=== PATIENT | female | born 1960 | race Caucasian/White ===

== ENCOUNTER 2019-03-23 14:32 | Inpatient (IN) | payer MEDICAID ==
[~2019-03-23] VITALS: Ht 165.1 cm; Wt 108.9 kg
[2019-03-23] MEDS ORDERED: ACETAMINOPHEN 325MG TABLET PO STA (14:56)
[2019-03-23] MEDS ORDERED: SODIUM CHLORIDE 0.9% 1000ML BAG (SEPSIS BOLUS) IV ONE (15:00)
[2019-03-23 15:30] LABS: BASOPHILS % 0.9 % (0.0-2.0); EOSINOPHILS % 0.8 % (0.0-5.0); HEMATOCRIT. 43.5 % (36.0-48.0); HEMOGLOBIN. 14.7 g/dL (12.0-16.0); LYMPHOCYTES % 27.2 % (20.0-50.0); MEAN CORPUSCULAR HEMOGLOBIN 32.2 pg (28.0-32.0); MEAN CORPUSCULAR VOLUME 95.3 fL (81.0-99.0); MEAN PLATELET VOLUME 9.9 fl (7.4-10.4); MONOCYTES % 10.3 % (2.0-8.0); NEUTROPHILS % 60.8 % (40.0-76.0); PLATELET 139 x1000/uL (130-400); RED BLOOD CELL COUNT 4.56 mill/uL (4.2-5.4); RED CELL DISTRIBUTION WIDTH 14.3 % (11.6-14.6)
[2019-03-23] MEDS ORDERED: LEVOFLOXACIN 500MG PREMIX 100 ML IV ONE (15:30)
[2019-03-23 15:31] LABS: CHLORIDE 103 mEq/L (98-107); PROTHROMBIN TIME 10.6 sec (9.6-11.0)
[2019-03-23 19:17] VITALS: BP 118/56
[2019-03-23 20:00] VITALS: BP 118/56
[2019-03-23] MEDS ORDERED: ACETAMINOPHEN 325MG TABLET PO PRN (21:15)
[2019-03-23] MEDS ORDERED: HYDROCODONE/ACETAMINOPHEN 5/325MG TABLET PO PRN (21:15)
[2019-03-23] MEDS ORDERED: DOCUSATE SODIUM 100MG CAPSULE PO PRN (21:15)
[2019-03-23] MEDS ORDERED: MAGNESIUM/ALUMINUM HYDROXIDE/SIMETHICONE 30ML UDC PO PRN (21:15)
[2019-03-23] MEDS ORDERED: CLONIDINE 0.1MG TABLET PO PRN (21:15)
[2019-03-23] MEDS ORDERED: GUAIFENESIN 200MG/10ML SUGAR FREE UDC PO PRN (21:15)
[2019-03-23] MEDS ORDERED: IPRATROPIUM/ALBUTEROL 0.5-3(2.5)MG/3ML NEB NEB PRN (21:15)
[2019-03-23] MEDS ORDERED: ONDANSETRON HCL 4MG/2ML INJ IV PRN (21:15)
[2019-03-23] MEDS ORDERED: ENOXAPARIN 40MG/0.4ML SYR SUBCUT SCH (22:00)
[2019-03-23] MEDS ORDERED: DEXTROSE 50% WATER 50ML SYRINGE IV PRN (22:45)
[2019-03-23 23:24] VITALS: BP 118/56
[2019-03-23 23:57] LABS: CHLORIDE 107 mEq/L (98-107)
[2019-03-24] VITALS: BP 125/54
[2019-03-24 00:05] LABS: CREATINE KINASE 76 IU/L (26-192)
[2019-03-24 00:07] LABS: CREATINE KINASE MB FRACTION < 1.0 ng/mL (0.5-3.6)
[2019-03-24] MEDS: CEFTRIAXONE 1 G PREMIX 50 ML IV SCH ×2 (01:32→22:11)
[2019-03-24] MEDS: AZITHROMYCIN 500 MG TABLET PO SCH ×2 (01:35→22:11)
[2019-03-24] MEDS: SODIUM CHLORIDE 0.9% 1,000 ML IV SCH ×2 (01:42→10:19)
[2019-03-24 04:00] VITALS: BP 148/54
[2019-03-24 05:47] LABS: LDL CHOLESTEROL 82 mg/dL (5-100)
[2019-03-24 05:49] LABS: CREATINE KINASE 69 IU/L (26-192); HDL CHOLESTEROL 51 mg/dL (40-59)
[2019-03-24 05:50] LABS: CREATINE KINASE MB FRACTION < 1.0 ng/mL (0.5-3.6)
[2019-03-24 06:14] LABS: BASOPHILS % 0.5 % (0.0-2.0); EOSINOPHILS % 0.8 % (0.0-5.0); HEMOGLOBIN. 14.2 g/dL (12.0-16.0); LYMPHOCYTES % 32.1 % (20.0-50.0); MEAN CORPUSCULAR HEMOGLOBIN 32.9 pg (28.0-32.0); MEAN CORPUSCULAR VOLUME 95.1 fL (81.0-99.0); NEUTROPHILS % 53.6 % (40.0-76.0); PLATELET 125 x1000/uL (130-400); RED BLOOD CELL COUNT 4.31 mill/uL (4.2-5.4); RED CELL DISTRIBUTION WIDTH 14.5 % (11.6-14.6)
[2019-03-24 07:08] LABS: CLARITY URINE CLEAR (CLEAR); COLOR URINE DARK YELLOW (YELLOW); KETONES URINE NEGATIVE (NEGATIVE); LEUKOCYTE ESTERASE URINE TRACE (NEGATIVE); NITRITE URINE POSITIVE (NEGATIVE); OCCULT BLOOD URINE NEGATIVE (NEGATIVE); PH URINE 5.5 (4.5-8.0); PROTEIN URINE NEGATIVE (NEGATIVE)
[2019-03-24] MEDS ORDERED: ATOR20TA PO (07:13)
[2019-03-24] MEDS ORDERED: GABA250S4 PO (07:13)
[2019-03-24] MEDS ORDERED: INSU100I28 SQ (07:13)
[2019-03-24] MEDS ORDERED: FAMO40TA70 PO (07:13)
[2019-03-24] MEDS: BLOOD SUGAR DIAGNOSTIC STRIP TEST SCH ×4 (07:40→20:49)
[2019-03-24 08:00] VITALS: BP 111/57
[2019-03-24] MEDS: INSULIN LISPRO 100 UNITS/ML SUBCUT SCH ×4 (08:15→20:48)
[2019-03-24 09:01] LABS: *AMPHETAMINES SCREEN URINE NEGATIVE (NEGATIVE); *BARBITURATES SCREEN URINE NEGATIVE (NEGATIVE); *BENZODIAZEPINES SCREEN URINE NEGATIVE (NEGATIVE); *COCAINE SCREEN URINE NEGATIVE (NEGATIVE)
[2019-03-24 09:02] LABS: CANNABINOID URINE SCREEN NEGATIVE (NEGATIVE); METHADONE URINE SCREEN NEGATIVE (NEGATIVE); OPIATES URINE SCREEN NEGATIVE (NEGATIVE); PHENCYCLIDINE URINE SCREEN NEGATIVE (NEGATIVE)
[2019-03-24] MEDS: FLUCONAZOLE 100MG TABLET PO SCH (10:19)
[2019-03-24 12:00] VITALS: BP 123/51
[2019-03-24] MEDS ORDERED: INFLUENZA VIRUS VACCINE(AFLURIA) 0.5ML SYR IM ONE (12:00)
[2019-03-24] MEDS ORDERED: PNEUMOCOCCAL 23-VAL P-SAC VAC 0.5 ML IM ONE (12:00)
[2019-03-24 16:00] VITALS: BP 144/74
[2019-03-24 20:00] VITALS: BP 146/61
[2019-03-24] MEDS: ENOXAPARIN 30MG/0.3ML SYR SUBCUT SCH (20:47)
[2019-03-25] VITALS: BP 139/60
[2019-03-25 04:00] VITALS: BP 130/57
[2019-03-25] MEDS: BLOOD SUGAR DIAGNOSTIC STRIP TEST SCH ×2 (06:46→13:00)
[2019-03-25 08:00] VITALS: BP 134/52
[2019-03-25] MEDS: FLUCONAZOLE 100MG TABLET PO SCH (08:12)
[2019-03-25] MEDS: ENOXAPARIN 30MG/0.3ML SYR SUBCUT SCH (08:13)
[2019-03-25] MEDS: INSULIN LISPRO 100 UNITS/ML SUBCUT SCH ×2 (08:16→12:59)
[2019-03-25] MEDS ORDERED: ATORVASTATIN CALCIUM 20MG TABLET PO SCH (11:00)
[2019-03-25] MEDS ORDERED: FAMOTIDINE 20MG TABLET PO SCH (11:00)
[2019-03-25] MEDS ORDERED: NICOTINE 14MG PATCH TD SCH (11:00)
[2019-03-25] MEDS ORDERED: GABAPENTIN 100MG CAPSULE PO SCH (11:00)
[2019-03-25] MEDS: SODIUM CHLORIDE 0.9% 1,000 ML IV SCH (11:06)
[2019-03-25 12:00] VITALS: BP 130/62
[2019-03-25 16:00] VITALS: BP 138/59
[2019-03-25 16:45] VITALS: BP 130/62
[2019-03-25] MEDS ORDERED: INSULIN GLARGINE UD 100 UNITS/ML SYR SUBCUT SCH (22:00)
== END 2019-03-25 17:36 | disposition home or self-care (01) | DRG 531 ==
LOC: ER 14:32 → 6EST 17:02 → EDBEDREQSVC 17:11 → EDBEDREQTM 17:11 → EDBEDREQ 17:11 → ENRESERV 17:47
PROVIDERS: ADMIT Internal Medicine; ATTEND Internal Medicine
DX: B37.49 Other urogenital candidiasis (principal); E44.0 Moderate protein-calorie malnutrition; B34.9 Viral infection, unspecified; E11.9 Type 2 diabetes mellitus without complications; F17.200 Nicotine dependence, unspecified, uncomplicated; I10 Essential (primary) hypertension; Z71.6 Tobacco abuse counseling; Z86.73 Personal history of transient ischemic attack (TIA), and cerebral infarction without residual deficits; Z90.49 Acquired absence of other specified parts of digestive tract; Z79.899 Other long term (current) drug therapy
CPT/HCPCS: 36415; 71045; 80048; 80061; 80305; 81003; 82550; 82553; 82962; 83036; 83605; 83735; 83880; 84145; 84443; 84484; 87070; 87106; 87804; 90686; 90732; 93005; 93970; 96360; 99285; J0696; J1650; J1815; J1956; J7030

== ENCOUNTER 2019-07-04 01:28 | Emergency (ER) | payer MEDICAID ==
[~2019-07-04] VITALS: Ht 154.9 cm; Wt 98.0 kg
[~2019-07-04 01:28] MED LIST: ATOR20TA PO; FAMO40TA70 PO; GABA250S4 PO; INSU100I28 SQ
[2019-07-04] MEDS ORDERED: KETOROLAC 30MG/ML VIAL IV STA (02:32)
[2019-07-04] MEDS ORDERED: SODIUM CHLORIDE 0.9% 500 ML IV ONE (02:32)
[2019-07-04 03:04] LABS: BASOPHILS % 1.1 % (0.0-2.0); EOSINOPHILS % 1.4 % (0.0-5.0); HEMATOCRIT. 41.4 % (36.0-48.0); LYMPHOCYTES % 29.7 % (20.0-50.0); MEAN CORPUSCULAR HEMOGLOBIN 31.9 pg (28.0-32.0); MEAN PLATELET VOLUME 9.6 fl (7.4-10.4); MONOCYTES % 9.9 % (2.0-8.0); NEUTROPHILS % 57.9 % (40.0-76.0); PLATELET 144 x1000/uL (130-400); RED CELL DISTRIBUTION WIDTH 14.1 % (11.6-14.6)
[2019-07-04 03:07] LABS: CHLORIDE 104 mEq/L (98-107)
[2019-07-04 03:08] LABS: PROTHROMBIN TIME 10.1 sec (9.6-11.0)
[2019-07-04 03:16] LABS: CREATINE KINASE 203 IU/L (26-192)
[2019-07-04 05:39] LABS: CLARITY URINE CLEAR (CLEAR); COLOR URINE DARK YELLOW (YELLOW); KETONES URINE NEGATIVE (NEGATIVE); LEUKOCYTE ESTERASE URINE TRACE (NEGATIVE); NITRITE URINE POSITIVE (NEGATIVE); OCCULT BLOOD URINE NEGATIVE (NEGATIVE); PH URINE 5.5 (4.5-8.0); PROTEIN URINE TRACE (NEGATIVE); SPECIFIC GRAVITY URINE 1.017 (1.005-1.030); UROBILINOGEN URINE 0.2 E.U./dL (0.2-1.0)
[2019-07-04 06:21] VITALS: BP 120/56
[2019-07-04] MEDS ORDERED: CEFTRIAXONE 1 G PREMIX 50 ML IV ONE (06:30)
== END 2019-07-04 07:35 | disposition home or self-care (01) ==
LOC: ER 01:28
DX: N39.0 Urinary tract infection, site not specified (principal); M79.605 Pain in left leg; M79.604 Pain in right leg; E11.9 Type 2 diabetes mellitus without complications; I10 Essential (primary) hypertension; Z79.899 Other long term (current) drug therapy
CPT/HCPCS: 36415; 80053; 81003; 82550; 85025; 85610; 93970; 96374; 96375; 99284; J0696; J1885; J7030; Z7610

== ENCOUNTER 2023-02-25 00:26 | Emergency (ER) | payer MEDICAID, OTHER ==
[~2023-02-25] VITALS: Ht 162.6 cm; Wt 91.0 kg
[~2023-02-25 00:26] MED LIST changes: +GABA250S11 PO; -GABA250S4 PO
[2023-02-25 00:33] VITALS: O2SAT 94
[2023-02-25] MEDS ORDERED: SODIUM CHLORIDE 0.9% 1,000 ML IV ONE (00:45)
[2023-02-25 01:08] LABS: BASOPHILS % 0.9 % (0.0-2.0); EOSINOPHILS % 1.5 % (0.0-5.0); HEMOGLOBIN. 15.2 g/dL (12.0-16.0); MEAN CORPUSCULAR VOLUME 96.8 fL (81.0-99.0); MEAN PLATELET VOLUME 9.1 fl (7.4-10.4); NEUTROPHILS % 58.6 % (40.0-76.0); PLATELET 149 x1000/uL (130-400); RED BLOOD CELL COUNT 4.75 mill/uL (4.2-5.4); RED CELL DISTRIBUTION WIDTH 14.5 % (11.6-14.6); WHITE BLOOD COUNT 6.2 x1000/uL (4.5-11.0)
[2023-02-25 01:11] LABS: CHLORIDE 103 mEq/L (98-107); INDEX HEMOLYSI 1 (1-3); INDEX ICTERIC 1 (1-4); INDEX LIPEMIC 1 (1-3); POTASSIUM 3.7 mEq/L (3.5-5.1); SODIUM 137 mEq/L (136-145)
[2023-02-25 01:24] LABS: ALANINE AMINOTRANSFERASE 17 IU/L (13-61); ALBUMIN 2.5 g/dL (3.4-5.0); ASPARTATE AMINOTRANSFERASE 37 IU/L (15-37); BETA HYDROXYBUTYRATE 0.2 mMol/L (0.0-0.3); BILIRUBIN TOTAL 0.7 mg/dL (0.1-1.0); CALCIUM 8.6 mg/dL (8.5-10.1); CARBON DIOXIDE 25 mEq/L (21-32); CREATININE 0.5 mg/dL (0.6-1.3); GLUCOSE 320 mg/dL (70-105); NT PRO B-TYPE NATRIURETIC PEP 40 pg/mL (5-125); PROTEIN TOTAL 7.1 g/dL (6.0-8.3); UREA NITROGEN BLOOD 13 mg/dL (7-21)
[2023-02-25 01:28] LABS: TROPONIN I HIGH SENSITIVITY < 4 ng/L (<54)
[2023-02-25 03:38] LABS: TROPONIN I HIGH SENSITIVITY < 4 ng/L (<54)
[2023-02-25 03:50] LABS: CLARITY URINE CLOUDY (CLEAR); COLOR URINE DARK YELLOW (YELLOW); GLUCOSE URINE 3+ (NEGATIVE); KETONES URINE TRACE (NEGATIVE); LEUKOCYTE ESTERASE URINE TRACE (NEGATIVE); NITRITE URINE POSITIVE (NEGATIVE); OCCULT BLOOD URINE 1+ (NEGATIVE); PH URINE 6.5 (4.5-8.0); PROTEIN URINE 4+ (NEGATIVE); SPECIFIC GRAVITY URINE 1.038 (1.005-1.030)
[2023-02-25 04:21] LABS: BACTERIA URINE 4+; SQUAMOUS EPITHELIAL CELL URINE 1+ /lpf (RARE/1+)
[2023-02-25] MEDS ORDERED: CEPH500C2 MT (04:28)
[2023-02-25] MEDS: CEFTRIAXONE 1GM PREMIX 50 ML IV NR (04:43)
[2023-02-25 05:15] VITALS: BP 185/75; PULSE 84; RESP 16; TEMP 98.3
== END 2023-02-25 05:18 | disposition home or self-care (01) ==
LOC: ER 00:26
DX: N39.0 Urinary tract infection, site not specified (principal); E11.9 Type 2 diabetes mellitus without complications; I10 Essential (primary) hypertension
CPT/HCPCS: 80053; 81003; 82010; 83880; 83690; 85025; 84484; 36415; 71045; 96361; 96365; 99291; J0696; J7030; Z7610 ×2